=== PATIENT | male | born 1940 | race American Indian/Alaskan Native ===

== ENCOUNTER 2016-11-20 08:05 | Outpatient (CLI) | payer MEDICARE ==
[2016-11-20] MEDS ORDERED: XYLOCAINE TOPICAL 4% TP ONE (09:07)
== END 2016-11-20 08:06 | disposition home or self-care (01) ==
LOC: WOUND 08:05
PROVIDERS: ATTEND Nurse Practitioner
DX: E11.621 Type 2 diabetes mellitus with foot ulcer (principal); L97.521 Non-pressure chronic ulcer of other part of left foot limited to breakdown of skin; I70.244 Atherosclerosis of native arteries of left leg with ulceration of heel and midfoot; L97.421 Non-pressure chronic ulcer of left heel and midfoot limited to breakdown of skin; E11.51 Type 2 diabetes mellitus with diabetic peripheral angiopathy without gangrene; I48.91 Unspecified atrial fibrillation; I10 Essential (primary) hypertension; F17.210 Nicotine dependence, cigarettes, uncomplicated; Z85.46 Personal history of malignant neoplasm of prostate; Z85.118 Personal history of other malignant neoplasm of bronchus and lung; Z98.62 Peripheral vascular angioplasty status
CPT/HCPCS: 11042; G0463; 11055

== ENCOUNTER 2016-11-25 15:14 | Outpatient (CLI) | payer MEDICARE ==
[2016-11-25 15:40] LABS: Basophils % (Auto) 0.6 % (0.0-1.8); Eosinophils % (Auto) 2.3 % (0.0-4.3); Hematocrit 42.3 % (35.5-45.6); Hemoglobin 13.8 gm/dl (11.8-15.2); Mean Corpuscular HGB Conc 33 % (32-34); Mean Corpuscular Hemoglobin 29 pg (28-32); Mean Corpuscular Volume 90 fl (84-94); Platelet Count 124 K/mm3 (140-440); Red Blood Count 4.71 M/mm3 (3.65-5.03); Red Cell Distribution Width 14.6 % (13.2-15.2); White Blood Count 8.4 K/mm3 (4.5-11.0)
[2016-11-25 15:58] LABS: Alanine Aminotransferase 11 units/L (7-56); Albumin 4.1 g/dL (3.9-5); Albumin/Globulin Ratio 1.3 %; Alkaline Phosphatase 79 units/L (35-129); Anion Gap 19 mmol/L; BUN/Creatinine Ratio 15.45; Blood Urea Nitrogen 17 mg/dL (9-20); Calcium 9.4 mg/dL (8.4-10.2); Carbon Dioxide 26 mmol/L (22-30); Chloride 97.9 mmol/L (98-107); Glucose 229 mg/dL (75-100); Potassium 3.6 mmol/L (3.6-5.0); Sodium 139 mmol/L (137-145); Total Protein 7.3 g/dL (6.3-8.2)
--- NOTE | 2016-11-25 16:33 | XRay Report ---
CHEST 2 VIEWS INDICATION: Atherosclerosis with ulceration. COMPARISON: None similar at this institution. FINDINGS: PA and lateral chest radiographs demonstrate normal cardiomediastinal silhouette. Aortic knob calcifications. Left carotid atherosclerotic calcifications. Clear, hyperexpanded lungs/COPD. No pleural effusions or CHF. Osteopenia and mild mid thoracic spine degenerative spurring. CONCLUSION: COPD without acute chest process, as described. Thank you for the opportunity to participate in this patient's care.
== END 2016-11-25 15:15 | disposition home or self-care (01) ==
LOC: CARD 15:14
PROVIDERS: ATTEND Nurse Practitioner
DX: I70.245 Atherosclerosis of native arteries of left leg with ulceration of other part of foot (principal); I65.22 Occlusion and stenosis of left carotid artery; J44.9 Chronic obstructive pulmonary disease, unspecified; I70.0 Atherosclerosis of aorta; M85.88 Other specified disorders of bone density and structure, other site
CPT/HCPCS: 36415; 71020; 80053; 83036; 85025; 93005; 93010

== ENCOUNTER 2016-11-27 08:32 | Outpatient (CLI) | payer MEDICARE ==
[2016-11-27] MEDS ORDERED: XYLOCAINE TOPICAL 4% TP ONE ×2 (08:56→09:16)
== END 2016-11-27 08:33 | disposition home or self-care (01) ==
LOC: WOUND 08:32
PROVIDERS: ATTEND Nurse Practitioner
DX: I70.244 Atherosclerosis of native arteries of left leg with ulceration of heel and midfoot (principal); E11.621 Type 2 diabetes mellitus with foot ulcer; L97.521 Non-pressure chronic ulcer of other part of left foot limited to breakdown of skin; E11.51 Type 2 diabetes mellitus with diabetic peripheral angiopathy without gangrene; I10 Essential (primary) hypertension; F17.200 Nicotine dependence, unspecified, uncomplicated; Z85.46 Personal history of malignant neoplasm of prostate; Z98.62 Peripheral vascular angioplasty status; Z85.118 Personal history of other malignant neoplasm of bronchus and lung
CPT/HCPCS: 87075; 87076; 87116; 87186

== ENCOUNTER 2016-12-05 11:04 | Outpatient (CLI) | payer MEDICARE ==
[2016-12-05] MEDS ORDERED: XYLOCAINE TOPICAL 4% TP ONE ×2 (12:22→13:26)
== END 2016-12-05 11:05 | disposition home or self-care (01) ==
LOC: WOUND 11:04
PROVIDERS: ATTEND Podiatrist
DX: I70.244 Atherosclerosis of native arteries of left leg with ulceration of heel and midfoot (principal); E11.621 Type 2 diabetes mellitus with foot ulcer; L97.422 Non-pressure chronic ulcer of left heel and midfoot with fat layer exposed; L84 Corns and callosities; I10 Essential (primary) hypertension; E11.51 Type 2 diabetes mellitus with diabetic peripheral angiopathy without gangrene; F17.200 Nicotine dependence, unspecified, uncomplicated; Z98.62 Peripheral vascular angioplasty status; Z85.46 Personal history of malignant neoplasm of prostate; Z85.118 Personal history of other malignant neoplasm of bronchus and lung

== ENCOUNTER 2016-12-11 10:36 | Outpatient (CLI) | payer MEDICARE ==
[2016-12-11] MEDS ORDERED: SILVER NITRATE TP ONE (11:31)
[2016-12-11] MEDS ORDERED: NACL 0.9% 500 ML IR ONE (11:46)
[2016-12-11] MEDS ORDERED: XYLOCAINE TOPICAL 4% TP ONE (12:00)
== END 2016-12-11 10:37 | disposition home or self-care (01) ==
LOC: WOUND 10:36
PROVIDERS: ATTEND Nurse Practitioner
DX: I70.244 Atherosclerosis of native arteries of left leg with ulceration of heel and midfoot (principal); E11.621 Type 2 diabetes mellitus with foot ulcer; L97.422 Non-pressure chronic ulcer of left heel and midfoot with fat layer exposed; E11.51 Type 2 diabetes mellitus with diabetic peripheral angiopathy without gangrene; L84 Corns and callosities; I10 Essential (primary) hypertension; F17.200 Nicotine dependence, unspecified, uncomplicated; Z98.62 Peripheral vascular angioplasty status; Z85.46 Personal history of malignant neoplasm of prostate; Z85.118 Personal history of other malignant neoplasm of bronchus and lung
CPT/HCPCS: 17250

== ENCOUNTER 2016-12-18 10:31 | Outpatient (CLI) | payer MEDICARE ==
[2016-12-18] MEDS ORDERED: XYLOCAINE TOPICAL 4% TP ONE ×2 (11:28→11:34)
== END 2016-12-18 10:32 | disposition home or self-care (01) ==
LOC: WOUND 10:31
PROVIDERS: ATTEND Nurse Practitioner
DX: I70.244 Atherosclerosis of native arteries of left leg with ulceration of heel and midfoot (principal); E11.621 Type 2 diabetes mellitus with foot ulcer; L97.422 Non-pressure chronic ulcer of left heel and midfoot with fat layer exposed; E11.51 Type 2 diabetes mellitus with diabetic peripheral angiopathy without gangrene; I10 Essential (primary) hypertension; L84 Corns and callosities; F17.200 Nicotine dependence, unspecified, uncomplicated; Z85.46 Personal history of malignant neoplasm of prostate; Z85.118 Personal history of other malignant neoplasm of bronchus and lung; Z98.62 Peripheral vascular angioplasty status
CPT/HCPCS: 11055

== ENCOUNTER 2016-12-25 10:30 | Outpatient (CLI) | payer MEDICARE ==
[2016-12-25] MEDS ORDERED: XYLOCAINE TOPICAL 4% TP ONE ×2 (11:00→11:12)
== END 2016-12-25 10:31 | disposition home or self-care (01) ==
LOC: WOUND 10:30
PROVIDERS: ATTEND Nurse Practitioner
DX: I70.244 Atherosclerosis of native arteries of left leg with ulceration of heel and midfoot (principal); E11.621 Type 2 diabetes mellitus with foot ulcer; L97.422 Non-pressure chronic ulcer of left heel and midfoot with fat layer exposed; E11.51 Type 2 diabetes mellitus with diabetic peripheral angiopathy without gangrene; L84 Corns and callosities; I10 Essential (primary) hypertension; F17.210 Nicotine dependence, cigarettes, uncomplicated; Z85.46 Personal history of malignant neoplasm of prostate; Z85.118 Personal history of other malignant neoplasm of bronchus and lung; Z98.62 Peripheral vascular angioplasty status
CPT/HCPCS: 11056

== ENCOUNTER 2017-01-01 10:27 | Outpatient (CLI) | payer MEDICARE ==
[2017-01-01] MEDS ORDERED: XYLOCAINE TOPICAL 4% TP ONE (11:03)
== END 2017-01-01 10:28 | disposition home or self-care (01) ==
LOC: WOUND 10:27
PROVIDERS: ATTEND Nurse Practitioner
DX: E11.621 Type 2 diabetes mellitus with foot ulcer (principal); I70.244 Atherosclerosis of native arteries of left leg with ulceration of heel and midfoot; L97.422 Non-pressure chronic ulcer of left heel and midfoot with fat layer exposed; E11.51 Type 2 diabetes mellitus with diabetic peripheral angiopathy without gangrene; L84 Corns and callosities; I10 Essential (primary) hypertension; F17.200 Nicotine dependence, unspecified, uncomplicated; Z85.46 Personal history of malignant neoplasm of prostate; Z85.118 Personal history of other malignant neoplasm of bronchus and lung; Z98.62 Peripheral vascular angioplasty status

== ENCOUNTER 2017-01-08 09:09 | Outpatient (CLI) | payer MEDICARE ==
[2017-01-08] MEDS ORDERED: XYLOCAINE TOPICAL 4% TP ONE ×2 (09:25→09:31)
== END 2017-01-08 09:10 | disposition home or self-care (01) ==
LOC: WOUND 09:09
PROVIDERS: ATTEND Nurse Practitioner
DX: I70.244 Atherosclerosis of native arteries of left leg with ulceration of heel and midfoot (principal); E11.621 Type 2 diabetes mellitus with foot ulcer; L97.422 Non-pressure chronic ulcer of left heel and midfoot with fat layer exposed; E11.51 Type 2 diabetes mellitus with diabetic peripheral angiopathy without gangrene; L84 Corns and callosities; Z98.62 Peripheral vascular angioplasty status; Z85.46 Personal history of malignant neoplasm of prostate; F17.200 Nicotine dependence, unspecified, uncomplicated

== ENCOUNTER 2017-01-15 09:29 | Outpatient (CLI) | payer MEDICARE ==
[2017-01-15] MEDS ORDERED: XYLOCAINE TOPICAL 2% ONE (09:47)
[2017-01-15] MEDS ORDERED: XYLOCAINE TOPICAL 2% TP ONE (09:56)
== END 2017-01-15 09:30 | disposition home or self-care (01) ==
LOC: WOUND 09:29
PROVIDERS: ATTEND Nurse Practitioner
DX: I70.244 Atherosclerosis of native arteries of left leg with ulceration of heel and midfoot (principal); E11.621 Type 2 diabetes mellitus with foot ulcer; L97.422 Non-pressure chronic ulcer of left heel and midfoot with fat layer exposed; E11.51 Type 2 diabetes mellitus with diabetic peripheral angiopathy without gangrene; L84 Corns and callosities; B35.1 Tinea unguium; I10 Essential (primary) hypertension; F17.200 Nicotine dependence, unspecified, uncomplicated; Z85.46 Personal history of malignant neoplasm of prostate; Z85.118 Personal history of other malignant neoplasm of bronchus and lung; Z98.62 Peripheral vascular angioplasty status

== ENCOUNTER 2017-01-22 10:02 | Outpatient (CLI) | payer MEDICARE ==
[2017-01-22] MEDS ORDERED: XYLOCAINE TOPICAL 4% TP ONE (10:51)
== END 2017-01-22 10:03 | disposition home or self-care (01) ==
LOC: WOUND 10:02
PROVIDERS: ATTEND Nurse Practitioner
DX: E11.621 Type 2 diabetes mellitus with foot ulcer (principal); L97.422 Non-pressure chronic ulcer of left heel and midfoot with fat layer exposed; I70.244 Atherosclerosis of native arteries of left leg with ulceration of heel and midfoot; I10 Essential (primary) hypertension; L84 Corns and callosities; E11.51 Type 2 diabetes mellitus with diabetic peripheral angiopathy without gangrene; F17.200 Nicotine dependence, unspecified, uncomplicated; Z85.46 Personal history of malignant neoplasm of prostate
CPT/HCPCS: 11055

== ENCOUNTER 2017-01-29 09:38 | Outpatient (CLI) | payer MEDICARE ==
[2017-01-29] MEDS ORDERED: XYLOCAINE TOPICAL 2% ONE (09:47)
[2017-01-29] MEDS ORDERED: XYLOCAINE TOPICAL 2% TP ONE (09:53)
[2017-01-29] MEDS ORDERED: XYLOCAINE TOPICAL 4% TP ONE (10:35)
== END 2017-01-29 09:39 | disposition home or self-care (01) ==
LOC: WOUND 09:38
PROVIDERS: ATTEND Surgery
DX: E11.621 Type 2 diabetes mellitus with foot ulcer (principal); L97.521 Non-pressure chronic ulcer of other part of left foot limited to breakdown of skin; I70.244 Atherosclerosis of native arteries of left leg with ulceration of heel and midfoot; L97.422 Non-pressure chronic ulcer of left heel and midfoot with fat layer exposed; L84 Corns and callosities; I10 Essential (primary) hypertension; E11.51 Type 2 diabetes mellitus with diabetic peripheral angiopathy without gangrene; F17.200 Nicotine dependence, unspecified, uncomplicated; Z85.46 Personal history of malignant neoplasm of prostate; Z85.118 Personal history of other malignant neoplasm of bronchus and lung; Z98.62 Peripheral vascular angioplasty status
CPT/HCPCS: 99214; G0463

== ENCOUNTER 2017-02-12 09:35 | Outpatient (CLI) | payer MEDICARE ==
[2017-02-12] MEDS ORDERED: XYLOCAINE TOPICAL 4% TP ONE (15:19)
== END 2017-02-12 09:36 | disposition home or self-care (01) ==
LOC: WOUND 09:35
PROVIDERS: ATTEND Nurse Practitioner
DX: I70.244 Atherosclerosis of native arteries of left leg with ulceration of heel and midfoot (principal); E11.621 Type 2 diabetes mellitus with foot ulcer; L97.422 Non-pressure chronic ulcer of left heel and midfoot with fat layer exposed; E11.51 Type 2 diabetes mellitus with diabetic peripheral angiopathy without gangrene; I10 Essential (primary) hypertension; L84 Corns and callosities; F17.200 Nicotine dependence, unspecified, uncomplicated; Z85.46 Personal history of malignant neoplasm of prostate; Z85.118 Personal history of other malignant neoplasm of bronchus and lung; Z98.62 Peripheral vascular angioplasty status
CPT/HCPCS: 99213; G0463